=== PATIENT | female | born 2000 | race Caucasian/White ===

== ENCOUNTER 2023-06-15 10:45 | Emergency (ER) | payer SELFPAY ==
[~2023-06-15 10:45] MED LIST: Iopamidol 370 76% 100 ML VIAL ONE
[2023-06-15 11:35] LABS: #Eosinphils 0.1 10x3/uL (0.0-0.5); #Monocytes 0.6 10x3/uL (0.0-1.1); #Neutrophils 7.4 10x3/uL (1.5-8.4); %Basophils 0.4 % (0.0-2.0); %Eosinophils 0.6 % (0.0-6.0); %Lymphocytes 19.8 % (18.0-47.0); %Monocytes 5.9 % (0.0-10.0); %Neutrophils 73.1 % (40.0-75.0); Hematocrit 37.4 % (34.9-44.5); Hemoglobin 11.4 g/dL (12.0-15.5); Mean Corpuscular HGB CONC 30.5 g/dL (32.0-36.0); Mean Corpuscular Hemoglobin 22.8 pg (27.0-33.0); Mean Corpuscular Volume 74.8 fl (81.6-98.3); Mean Platelet Volume 10.4 fl (7.4-10.4); Platelet Count 513 10x3/uL (150-450); RBC Distribution Width 16.6 % (11.5-14.5); White Blood Cell (WBC) Count 10.1 10x3/uL (3.5-10.5)
[2023-06-15 11:48] LABS: BHCG - Serum Negative (NEGATIVE); Pregs Control Background? CLEAR/WHITE (CLR/WHITE); Pregs Control Bar Appear? YES (CONTROL BAR)
[2023-06-15 11:51] LABS: ALT (SGPT) 13 U/L (8-55); AST (SGOT) 19 U/L (5-34); Albumin 4.6 g/dL (3.5-5.0); Alkaline Phosphatase 32 U/L (40-110); Anion Gap 15 mmol/L (10-20); BUN (Urea Nitrogen) 9 mg/dL (7.0-18.7); Bilirubin, Total 0.6 mg/dL (0.2-1.2); Calc. Creatinine Clearance 0 mL/min (70-130); Calcium 9.2 mg/dL (7.8-10.44); Carbon Dioxide 22 mmol/L (22-29); Chloride 109 mmol/L (98-107); Estimated GFR 114; Globulin 3.1 g/dL (2.4-3.5); Glucose 90 mg/dL (70-105); Potassium 4.3 mmol/L (3.5-5.1); Protein, Total 7.7 g/dL (6.0-8.3); Sodium 142 mmol/L (136-145)
[2023-06-15] MEDS ORDERED: Acetaminophen 500 MG TAB ONE (11:59)
[2023-06-15 12:46] LABS: Microcytosis SLIGHT = 6-15 cells (100X) (0-5/hpf); Ovalocytes SLIGHT = 2-5 cells (100X) (0-1/hpf)
[2023-06-15 12:47] LABS: Platelet Adequacy Comment Platelets Increased
== END 2023-06-15 13:50 | disposition home or self-care (01) ==
LOC: CSHERS 10:45 → EEVIPCON 10:45 → CSHERS 13:50
DX: S06.0XAA Concussion with loss of consciousness status unknown, initial encounter (principal); S00.93XA Contusion of unspecified part of head, initial encounter; S60.222A Contusion of left hand, initial encounter; Y04.8XXA Assault by other bodily force, initial encounter
CPT/HCPCS: 70450; 70498; 80053; 84703; 85025; Q9967